=== PATIENT | male | born 1975 | race Caucasian/White ===

== ENCOUNTER → 2017-01-02 | Outpatient (CLI) | payer BC ==
--- NOTE | 2017-01-02 16:13 | CT ---
CT head without contrast Indication: Intractable tension headache Technique: Helical CT images of the brain were obtained without IV contrast. Reformatted images in th e coronal and sagittal planes were also generated for review. Comparison: None Findings: There is no intracranial hemorrhage, visible acute infarction, focal or generalized edema, extra-axial collection, hydrocephalus or mass. The visualized paranasal sinuses and mastoid air cells are clear. No acute osseous or soft tissue abnormality is identified. Impression: No acute intracranial abnormality. Reported By:
== END ==
LOC: RAD 15:28
PROVIDERS: ATTEND Internal Medicine
DX: G44.201 Tension-type headache, unspecified, intractable (principal)
CPT/HCPCS: 70450